=== PATIENT | male | born 1980 | race African-American/Black ===

== ENCOUNTER 2019-07-11 08:37 | Emergency (ER) | payer OTHER, SELFPAY ==
--- NOTE | ~2019-07-11 | XR_ITS ---
EXAMINATION: XR chest 2V DATE: 07/11/2019 09:07 INDICATION: Left chest pain. Cough and fever. TECHNIQUE: Frontal and lateral views of the chest were obtained. COMPARISON: None. FINDINGS: There is a small left pleural effusion. There are airspace opacities at left lung base. Ple ural thickening at the lung apices may be prominent extrapleural fat or symmetric scarring. No pneumo thorax. The heart size is normal. IMPRESSION: 1. Small left pleural effusion. 2. Airspace opacities at left lung base, consistent with atelectasis versus pneumonia. Reviewed, dictated and finalized at location A. [employer] IMPRESSION: 1. Small left pleural effusion. 2. Airspace opacities at left lung base, consistent with atelectasis versus pne umonia.
[2019-07-11 08:52] VITALS: BP 133/72; PULSE 99; RESP 16; TEMP 37.8; O2SAT 99
--- NOTE | 2019-07-11 09:03 | ED.URI ---
HPI - URI/Sore Throat General Chief Complaint: Upper Respiratory Infection Stated Complaint: Back/rib cramp & pain Time Seen by Provider: 07/11/19 08:50 Source: patient Mode of arrival: ambulatory History of Present Illness HPI Narrative: Richa Garcia is a 39 yo male with no prior medical history who [facility] with complaints of cough and pain in his upper left chest radiating down to the front x1 week. Taking ibuprofen but pain continues is unable to take a deep breath, he is running a fever. Related Data Allergies Allergy/AdvReac Type Severity Reaction Status Date / Time No Known Allergies Allergy Verified 07/11/19 08:56 Review of Systems Review of Systems: Narrative: CONSTITUTIONAL: Has fever, chills, sweats. EYES: Denies visual changes, redness, discharge. ENT: Has rhinorrhea, congestion, sore throat, no otalgia. CARDIOVASCULAR: Has chest pain, no palpitations, edema. RESPIRATORY: Denies dyspnea, wheezing, has cough GASTROINTESTINAL: Denies abdominal pain, nausea, vomiting, diarrhea. GENITOURINARY: Denies dysuria, hematuria, abnormal discharge SKIN: Denies rash or itching. NEUROLOGIC: Denies numbness, or focal weakness. PSYCHIATRIC: Denies anxiety or depression. Upper left back pain PMFSH Family History Family History Other No acute medical problems Social History Social History Smoking status: Never smoker Alcohol intake: never Comments At time of signature, I agree with nursing past medical, surgical, social and family history. There is no relevant family history pertinent to the presenting complaint. Exam Narrative: Exam Narrative: GENERAL: This is a well-nourished, well-developed patient, in moderate distress. HEAD: normocephalic, atraumatic. EYES: Sclera clear/white. Vision is grossly intact. EARS: External ears normal, auditory canals clear and without drainage, TMs normal without perforation. Hearing grossly intact. NOSE: External nose normal with no obvious nasal discharge, nares without redness, no rhinorrhea. THROAT: Mucous membranes moist, posterior pharynx erythema. NECK: Neck supple, non-tender without lymphadenopathy, masses or thyromegaly. CARDIOVASCULAR: Regular rate and rhythm without murmurs, gallops, or rubs. RESPIRATORY: Diminished particularly in left side of chest to auscultation. Breath sounds equal bilaterally. No wheezes, rales, or rhonchi. GASTROINTESTINAL: Abdomen soft, non-tender, nondistended. Bowel sounds are active. No hepato-splenomegaly, or palpable masses. No guarding. SKIN: warm, intact with no suspicious lesions or rash, good texture and turgor. NEURO: awake, alert, and oriented to person, place and time. There were no obvious focal neurologic abnormalities. Steady gait EXTREMITIES: Normal range of motion. No edema. No calf tenderness. BACK: Nontender without deformity , unable to take deep breaths due to back pain although no tenderness on palpation. Course Course Emergency Course: Chest [id number] to be pneumonia left lower lobe DuoNeb here Started on albuterol inhaler, and Augmentin Vital Signs Vital signs: Vital Signs Temperature 100.0 F H 07/11/19 08:52 Pulse Rate 99 07/11/19 08:52 Respiratory Rate 16 07/11/19 08:52 Blood Pressure 133/72 07/11/19 08:52 Pulse Oximetry 99 07/11/19 08:52 Temperature 100.0 F H 07/11/19 08:52 Pulse Rate 107 H 07/11/19 09:40 Respiratory Rate 20 07/11/19 09:40 Blood Pressure 133/72 07/11/19 08:52 Pulse Oximetry 97 07/11/19 09:40 MDM - URI/Sore Throat Differential Diagnosis Differential diagnosis: Likely upper respiratory infection, viral infection and other Discharge Plan Discharge Clinical Impression: Pneumonia Qualifiers: Pneumonia type: due to unspecified organism Laterality: left Lung location: lower lobe of lung Qualified Code(s): J18.9 - Pne
[2019-07-11 09:13] VITALS: PULSE 99; RESP 16; O2SAT 99
[2019-07-11 09:40] VITALS: PULSE 107; RESP 20; O2SAT 97
== END 2019-07-11 10:15 | disposition home or self-care (01) ==
PROVIDERS: Emergency Provider Nurse Practitioner
DX: J18.9 Pneumonia, unspecified organism (principal); J45.909 Unspecified asthma, uncomplicated
CPT/HCPCS: 71046; 99203; G0463